=== PATIENT | female | born 1950 | race Two or more races ===

== ENCOUNTER 2017-07-19 14:27 | Outpatient (CLI) | payer OTHER ==
[~2017-07-19 14:27] MED LIST: CRESTOR10 MG PO; ENALAPRIL MALE2.5 MG PO; ZIAC 2.5-6.25 M1 TAB
== END 2017-07-19 15:05 | disposition home or self-care (01) ==
LOC: SONOGRAMA 14:27
DX: M25.511 Pain in right shoulder (principal)

== ENCOUNTER → 2017-11-03 | Outpatient (CLI) | payer OTHER | END | disposition home or self-care (01) | LOC: SONOGRAMA 07:53 | DX: M25.571 Pain in right ankle and joints of right foot (principal) ==